=== PATIENT | female | born 2000 | race Caucasian/White ===

== ENCOUNTER 2020-01-05 08:11 | Emergency (ER) | payer OTHER, SELFPAY ==
--- NOTE | ~2020-01-05 | XR_ITS ---
XR finger 1st LT min 2V 01/05/2020 08:53 INDICATION: Left first finger PROCEDURE: 3 views left first finger COMPARISON: No prior studies for comparison. FINDINGS: Fracture, dislocation or subluxation is not identified. The soft tissues appear within norm al limits. No foreign bodies are identified. IMPRESSION: 1: NO ACUTE BONE OR JOINT ABNORMALITY IDENTIFIED. Reviewed, dictated and finalized at location B.
[2020-01-05 08:30] VITALS: BP 117/70; PULSE 66; RESP 16; TEMP 36.3; O2SAT 99
--- NOTE | 2020-01-05 08:44 | ED.EXTPRO ---
HPI - Extremity Problem General Chief complaint: Extremity Injury, Upper Stated complaint: Left thumb Pain Time Seen by Provider: 01/05/20 08:35 Source: patient and RN notes reviewed Mode of arrival: ambulatory Limitations: no limitations History of Present Illness HPI Narrative: Patient presents today complaining of pain to her left thumb. She works at [employer] and bent her finger backwards yesterday at 1800 when moving heavy bags. Currently rates her pain 4/10, which increases to 6/10 with movement. She took some ibuprofen yesterday for pain, but none today. Denies numbness or tingling in the finger or hand. MD Complaint: extremity pain Related Data Home Medications Medication Instructions Recorded Confirmed escitalopram oxalate [Lexapro] 10 mg PO DAILY 01/05/20 01/05/20 Allergies Allergy/AdvReac Type Severity Reaction Status Date / Time No Known Allergies Allergy Verified 01/05/20 08:38 Review of Systems Review of Systems: Narrative: CONSTITUTIONAL: Denies body aches, fever, chills, or sweats. EYES: Denies visual changes, redness, or discharge. ENT: Denies rhinorrhea, congestion, sore throat, or otalgia. CARDIOVASCULAR: Denies chest pain, palpitations, or edema. RESPIRATORY: Denies cough or dyspnea. GASTROINTESTINAL: Denies abdominal pain, nausea, vomiting, or diarrhea. GENITOURINARY: Denies dysuria or hematuria. SKIN: Denies rash, itching, or wounds. MUSCULOSKELETAL: Denies back pain, or myalgia. + Left thumb injury NEUROLOGIC: Denies headache, numbness, tingling, or weakness. PSYCH: Denies depression or anxiety. [facility] Social History Social History Gender identity (if verbalized by the patient): Female Comments At time of signature, I have reviewed and agree with nursing past medical, surgical, social and family history unless otherwise noted. Please see nursing chart for further information. There is no relevant family history pertinent to the presenting complaint Exam Narrative: Exam Narrative: GENERAL: Well-appearing, well-nourished, and in no acute distress. HEAD: Normocephalic, atraumatic. EYES: EOMI. No redness or drainage. Conjunctivae normal. ENT: Mucous membranes pink and moist. NECK: Normal AROM. CHEST: No respiratory distress. EXTREMITIES: Left thumb: Tenderness to the MCP without edema, erythema. Mild ecchymosis. Pain to the MCP with PROM. Sensation intact. Capillary refill normal. All other fingers without injury. Remainder of the hand is normal. No snuffbox tenderness. SKIN: Warm, dry, no rash. Capillary refill normal. Normal skin turgor. NEURO: No focal deficits. Alert and oriented x3. Gait steady. PSYCH: Normal affect. No signs of depression or anxiety. Course Vital Signs Vital signs: Vital Signs Temperature 97.4 F L 01/05/20 08:30 Pulse Rate 66 01/05/20 08:30 Respiratory Rate 16 01/05/20 08:30 Blood Pressure 117/70 01/05/20 08:30 Pulse Oximetry 99 01/05/20 08:30 Temperature 97.4 F L 01/05/20 08:30 Pulse Rate 66 01/05/20 08:30 Respiratory Rate 16 01/05/20 08:30 Blood Pressure 117/70 01/05/20 08:30 Pulse Oximetry 99 01/05/20 08:30 Reviewed MDM - Extremity (Nontraumatic) Differential Diagnosis Differential diagnosis: Likely other (Finger fracture, finger sprain, contusion) Imaging Data Radiologist's impression: ITS Impressions Finger X-Ray 01/05/20 09:01 IMPRESSION: 1: NO ACUTE BONE OR JOINT ABNORMALITY IDENTIFIED. Critical Care Time Critical Care Time Critical Care Time: No Discharge Plan Discharge Clinical Impression: Finger sprain Qualifiers: Encounter type: initial encounter Finger: thumb Sprain of finger site: metacarpophalangeal joint Laterality: left Qualified Code(s): S63.642A - Sprain of metacarpophalangeal joint of left thumb, initial encounter Patient Disposition: Home, Self-Care Condition: Stable Instructions: Finger Spr
== END 2020-01-05 09:12 | disposition home or self-care (01) ==
PROVIDERS: Emergency Provider Nurse Practitioner
DX: S63.642A Sprain of metacarpophalangeal joint of left thumb, initial encounter (principal); X50.9XXA Other and unspecified overexertion or strenuous movements or postures, initial encounter; Y99.0 Civilian activity done for income or pay; F41.9 Anxiety disorder, unspecified; F32.9 Major depressive disorder, single episode, unspecified
CPT/HCPCS: 73140; 99213; G0463

== ENCOUNTER 2022-12-29 08:57 | Emergency (ER) | payer OTHER, SELFPAY ==
[2022-12-29 09:34] VITALS: BP 132/74; PULSE 69; RESP 18; TEMP 37; O2SAT 100
--- NOTE | 2022-12-29 09:41 | ED.EYEPROB ---
HPI - Eye Problem General Chief complaint: Eye Problems Stated complaint: left eye pain,swollen Time Seen by Provider: 12/29/22 09:01 Source: patient and family Mode of arrival: ambulatory Limitations: no limitations History of Present Illness HPI Narrative: 22-year-old female presents to [facility] accompanied by mother for complaints of left eye irritation, redness and swelling since yesterday. Patient has been applying warm compresses and using [id number] eye ointment with little relief. Patient denies visual changes, drainage, matting or injury to her eye. Patient does wear glasses. chief complaint: eye pain Onset (ago): day(s) (1) Onset description: sudden Location: left eye Mechanism: none Associated symptoms: none Treatments Prior to Arrival: OTC eye drops Related Data Home Medications Medication Instructions Recorded Confirmed escitalopram oxalate 10 mg tablet 10 mg PO DAILY 01/05/20 12/29/22 (Lexapro) Allergies Allergy/AdvReac Type Severity Reaction Status Date / Time No Known Allergies Allergy Verified 12/29/22 09:30 Review of Systems Constitutional: Constitutional: Denies chills, Denies fatigue, Denies fever(s) and Denies weakness Eyes: Comments: Left eyelid swelling, redness and pain ENT: Denies dysphagia, Denies vertigo, Denies dizziness, Denies epistaxis and Denies nasal congestion Cardiovascular: Cardiovascular: Denies chest pain Respiratory: Respiratory: Denies cough, Denies dyspnea and Denies wheezing Gastrointestinal: Gastrointestinal: Denies diarrhea, Denies nausea and Denies vomiting Musculoskeletal: Musculoskeletal: Denies arthralgias and Denies joint swelling Integumentary/Breasts: Skin/Breast: Denies erythema, Denies rash and Denies skin ulcer Neurologic: Denies dizziness, Denies syncope and Denies headache(s) PMFSH Social History Social History Gender identity (if verbalized by the patient): Female Comments At time of signature, I agree with nursing past medical, surgical, social and family history. There is no relevant family history pertinent to the presenting complaint. Exam Const: General: healthy appearing and no acute distress Nutritional Appearance: well nourished Orientation/consciousness: patient oriented x3 Limitations: no limitations HENMT: Head: normal to inspection Teeth and gingiva: dentition normal Throat: posterior oropharynx normal and uvula midline Eyes: Conjunctivae: conjunctivae normal Pupils: Equal, round and reactive pupils present EOM: EOMs intact bilaterally Direct Ophthalmoscopy: no photophobia Other: mild erythema and swelling noted to left upper eyelid with small stye noted. Conjunctiva is within normal limits. There is no injection or drainage noted. Neck: Neck: normal visual inspection Resp: Effort & Inspection: normal respiratory effort and not labored Auscultation: clear to auscultation bilaterally, no crackles, no rales, no rhonchi and no wheezes Cardio: Rate: regular rate Rhythm: regular rhythm Heart sounds: no murmurs Skin: Rashes: no rashes Wounds: no wounds Neuro: Speech: normal speech Gait exam (Neuro): Normal gait present Psych: Affect: normal affect Attitude: cooperative Course Course Level of Care: Express Care Visit Vital Signs Vital signs: Vital Signs Temperature 37.0 C 12/29/22 09:34 Pulse Rate 69 12/29/22 09:34 Respiratory Rate 18 12/29/22 09:34 Blood Pressure 132/74 12/29/22 09:34 Pulse Oximetry 100 12/29/22 09:34 Oxygen Delivery Room Air 12/29/22 09:34 Temperature 37.0 C 12/29/22 09:34 Pulse Rate 69 12/29/22 09:34 Respiratory Rate 18 12/29/22 09:34 Blood Pressure 132/74 12/29/22 09:34 Pulse Oximetry 100 12/29/22 09:34 Oxygen Delivery Room Air 12/29/22 09:34 MDM - Eye Problem MDM Narrative Medical decision making narrative: instructed patient to continue
== END 2022-12-29 10:10 | disposition home or self-care (01) ==
PROVIDERS: Emergency Provider Nurse Practitioner Family; PCP Nurse Practitioner Family
DX: H00.014 Hordeolum externum left upper eyelid (principal)
CPT/HCPCS: 99213; G0463